=== PATIENT | male | born 1995 | race African-American/Black ===

== ENCOUNTER 2017-06-27 18:49 | Emergency (ER) | payer MEDICAID ==
[~2017-06-27] VITALS: Ht 182.9 cm; Wt 65.3 kg
[2017-06-27 18:50] VITALS: BP 135/77
[2017-06-27] MEDS ORDERED: DIAZEPAM 5 MG TABLET ONE (19:12)
[2017-06-27] MEDS ORDERED: KETOROLAC 30 MG/1 ML ONE (19:12)
[2017-06-27] MEDS ORDERED: IBUPROFEN 200 MG TABLET ONE (19:23)
[2017-06-27] MEDS ORDERED: IBUPROFEN 200 MG TABLET PO ONE (19:30)
[2017-06-27] MEDS ORDERED: DIAZEPAM 5 MG TABLET PO ONE (19:30)
[2017-06-27] MEDS ORDERED: KETOROLAC 30 MG/1 ML IM ONE (19:30)
== END 2017-06-27 19:48 | disposition home or self-care (01) ==
LOC: ED 19:15
DX: M54.42 Lumbago with sciatica, left side (principal); Z88.0 Allergy status to penicillin
CPT/HCPCS: 99283